=== PATIENT | male | born 1970 | race African-American/Black ===

== ENCOUNTER → 2019-09-27 | Outpatient (CLI) | payer BC ==
[2019-09-27 16:26] LABS: HCT 47.4 % (39.0-53.0); HGB 15.4 gm/dL (13.0-17.5); MCH 29.5 pg (25.0-35.0); MCHC 32.6 g/dL (31.0-37.0); MCV 90.6 fL (80.0-100.0); Mean Platelet Volume 7.9; Platelet Count 215 k/uL (150-450); RBC 5.23 m/uL (4.30-5.90); WBC 6.1 k/uL (3.8-10.6)
[2019-09-27 16:34] LABS: African American GFR (CKD) >90 (>60 ml/min/1.73 sqM); Anion Gap 9 mmol/L; Blood Urea Nitrogen 17 mg/dL (9-20); Carbon Dioxide 25 mmol/L (22-30); Chloride 103 mmol/L (98-107); Non-African American GFR(CKD) >90 (>60 ml/min/1.73 sqM); Potassium 4.3 mmol/L (3.5-5.1); Sodium 137 mmol/L (137-145)
== END | disposition home or self-care (01) ==
LOC: LABPAT 15:34
PROVIDERS: ATTEND Internal Medicine Interventional Cardiology
DX: Z01.818 Encounter for other preprocedural examination (principal); I45.2 Bifascicular block
CPT/HCPCS: 36415; 80051; 82565; 84520; 85027

== ENCOUNTER 2019-10-01 10:03 | Day surgery (SDC) | payer BC ==
[2019-09-29 16:23] VITALS: BMI 35.5
[~2019-10-01 10:03] MED LIST: ALPRAZolam 0.25 MG TAB PO PRN; ALPRAZolam 0.5 MG TAB PO PRN; ASPIRIN 325 MG TAB PO STA; ATORVASTATIN 80 MG TAB PO STA; NITROGLYCERIN SL TABS 0.4 MG TAB SUBLINGUAL PRN; SODIUM CHLORIDE 0.9% 1,000 ML in EMPTY BAG 1 BAG IV ONE
[2019-10-01 10:37] VITALS: RESP 16; TEMP 98.1
[2019-10-01] MEDS ORDERED: MIDAZOLAM 2 MG/2 ML VIAL IVP ONE (12:11)
[2019-10-01] MEDS: LIDOCAINE 1% INJ 10MG/ML (20 ML MDV) SQ ONE ×2 (12:12→12:26)
[2019-10-01] MEDS: VERAPAMIL SYRINGE (5 MG/10 ML) INTRAARTER ONE ×2 (12:14→12:36)
[2019-10-01] MEDS ORDERED: HEPARIN SODIUM 1,000 UN/ML (10ML VL) IVPB ONE (12:16)
[2019-10-01] MEDS ORDERED: IOPAMIDOL-370 125ML BTL INJ ONE (12:39)
[2019-10-01] MEDS ORDERED: RX INFO: IV CONTRAST WAS GIVEN 1 EACH MISC MISCELLANE PRN (12:43)
[2019-10-01] MEDS ORDERED: SODIUM CHLORIDE 0.9% 1,000 ML IV SCH (12:45)
[2019-10-01 14:56] VITALS: PULSE 89
[2019-10-01 14:57] VITALS: BP 132/75
--- NOTE | 2019-10-19 13:37 | CC ---
CARDIAC CATHETERIZATION REPORT DATE OF SERVICE: October 01, 2019 PERFORMING PHYSICIAN: Antony Everett MD. PROCEDURE PERFORMED: Selective right and left coronary angiogram. INDICATION: This is a pleasant 49-year-old gentleman who sees Dr. Baxter as an outpatient with history of cardiomyopathy and status post AICD, who was experiencing symptoms of shortness of breath and underwent myocardial perfusion imaging stress test and that revealed reversible defect. Because of that, a heart catheterization was advised. APPROACH: Right common femoral artery. COMPLICATION: None. LEVEL OF SEDATION: Moderate with sedation length of 15 minutes. PROCEDURE DESCRIPTION: After obtaining an informed consent, the patient was brought to the cardiac computer lab assistant. The right common femoral artery was cannulated using micropuncture technique, the micropuncture wire passed easily then I placed a 6-Pakistani sheath in the right common femoral artery. After that, I did selective right and left coronary angiogram with JR4 and JL4 catheters. The procedure was completed without any complication. SELECTIVE CORONARY ANGIOGRAM: 1. The right coronary artery is a large caliber vessel and is a dominant vessel. The RCA is tortuous. Distally it bifurcates into PDA and PLV branches both appeared to be angiographically normal. 2. The left main is a large caliber vessel. It bifurcates into LCX and LAD. The left main itself is angiographically normal. 3. The left circumflex is a large caliber vessel. It is a nondominant vessel. It is angiographically normal. In the midportion, it gives rise into a large OM branch which appeared to be angiographically normal. 4. The LAD is a large caliber vessel. It is angiographically normal. It gives rise in the midportion into first and second obtuse marginal branches, both appeared to be angiographically normal. CONCLUSION: Normal coronary angiogram. POSTPROCEDURE MANAGEMENT: Medical treatment. MMODL / IJN: [id number] /
== END 2019-10-01 17:25 | disposition home or self-care (01) ==
LOC: CATHCVL 10:03
PROVIDERS: ATTEND Internal Medicine Interventional Cardiology
DX: R94.39 Abnormal result of other cardiovascular function study (principal); I20.0 Unstable angina; I77.1 Stricture of artery; D86.85 Sarcoid myocarditis; I10 Essential (primary) hypertension; I47.1 Supraventricular tachycardia; E78.5 Hyperlipidemia, unspecified; R01.1 Cardiac murmur, unspecified; I45.2 Bifascicular block; I25.2 Old myocardial infarction; E66.9 Obesity, unspecified; Z68.30 Body mass index [BMI] 30.0-30.9, adult; J06.9 Acute upper respiratory infection, unspecified; Z95.810 Presence of automatic (implantable) cardiac defibrillator; Z82.49 Family history of ischemic heart disease and other diseases of the circulatory system; Z79.1 Long term (current) use of non-steroidal anti-inflammatories (NSAID); Z79.899 Other long term (current) drug therapy; Z91.040 Latex allergy status; Z88.2 Allergy status to sulfonamides
CPT/HCPCS: 93458; C1760; C1894 ×2; C1769 ×3; J2250; J2001; J1644; Q9967

== ENCOUNTER → 2020-05-02 | Outpatient (CLI) | payer BC ==
--- NOTE | 2020-05-02 19:57 | CT ---
EXAMINATION TYPE: CT knee LT wo con DATE OF EXAM: 05/02/2020 COMPARISON: 07/04/2016 HISTORY: Left knee pain CT DLP: 528.10 mGycm Automated exposure control for dose reduction was used. FINDINGS: Small joint effusion is present. No acute fractures are evident. There is some prominence of the tibi al plateau patellar insertion may be old Petrona-Schlatter's There is narrowing of the medial lateral joint spaces. Patellofemoral joint space appears preserved. There is some progression of patellofemoral degenerative changes. Medial and lateral joint space narr owing appears preserved over the interval. Three-D reconstructed images performed separately by the technologist are presented and reviewed. IMPRESSION: 1. MODERATE DEGENERATIVE JOINT CHANGES THROUGH THE LEFT KNEE. 2. THERE IS SOME PROGRESSION OF THE PATELLOFEMORAL COMPARTMENT DEGENERATIVE CHANGE FROM COMPARISON. 3. MODERATE JOINT EFFUSION
== END | disposition home or self-care (01) ==
LOC: RADCTMAIN 07:06
PROVIDERS: ATTEND Orthopaedic Surgery
DX: Z48.89 Encounter for other specified surgical aftercare (principal); M17.12 Unilateral primary osteoarthritis, left knee; M25.562 Pain in left knee; D86.9 Sarcoidosis, unspecified; F17.210 Nicotine dependence, cigarettes, uncomplicated

== ENCOUNTER → 2020-05-12 | Day surgery (SDC) | payer BC ==
[2020-05-03 10:47] VITALS: BMI 35.9
[~2020-05-12] MED LIST changes: -ALPRAZolam 0.25 MG TAB PO PRN; -ALPRAZolam 0.5 MG TAB PO PRN; -ASPIRIN 325 MG TAB PO STA; -ATORVASTATIN 80 MG TAB PO STA; +BUPIVACAINE (PF) 0.25% 30 ML VIAL MISCELLANE ONE; +DEXAMETHASONE SOD PHOSPHATE 10 MG/ML 1 ML VIAL IV ONE; +FAMOTIDINE 20 MG/2 ML VIAL IVP ONE; +LACTATED RINGERS 1,000 ML IV SCH; +LIDOCAINE 1% (10MG/ML) FOR IV START INTRADERMA PRN; +LIDOCAINE 1% INJ 10MG/ML (20 ML MDV) ONE; +MIDAZOLAM 2 MG/2 ML VIAL ONE; -NITROGLYCERIN SL TABS 0.4 MG TAB SUBLINGUAL PRN; +ONDANSETRON 4 MG/2 ML VIAL IVP ONE; +PROPOFOL 10 MG/ML 20 ML VIAL IV ONE; +Pre Op ABX Message 1 EACH MISC MISCELLANE ONE; -SODIUM CHLORIDE 0.9% 1,000 ML in EMPTY BAG 1 BAG IV ONE; +SODIUM CHLORIDE 0.9% 100 ML IV ONE; +fentaNYL (PF) 50 MCG/ML 2 ML AMP ONE
[2020-05-12 13:30] LABS: Glucose,Whole Blood 99 mg/dL (75-99)
--- NOTE | 2020-05-12 16:30 | P.OP ---
Date of Procedure: 05/12/20 Procedure(s) Performed: PREOPERATIVE DIAGNOSIS: 1. Left knee lateral and medial meniscus tears 2. Left knee osteoarthritis, tricompartmental POSTOPERATIVE DIAGNOSIS: 1. Left knee lateral meniscus tear 2. Left knee medial meniscus tear 3. Left knee osteoarthritis, patellofemoral, grade 3, medial grade 2, lateral grade 2 PROCEDURES PERFORMED: 1. Left knee arthroscopy, with partial lateral meniscectomy (25)%, posterior horn 2. Arthroscopic partial medial meniscectomy (10) percent, anterior horn 3. Left knee arthroscopic chondroplasty of patellofemoral compartment ANESTHESIA: rn obgyn: None COMPLICATIONS: none ESTIMATED BLOOD LOSS: Less than 10 ml DISPOSITION: To post-anesthesia care unit INDICATIONS: Pascual is a 49-year-old male with a history of left knee pain on the both the medial and lateral sides. He has undergone previous arthroscopy of the left knee successfully a few years ago. He is having mechanical symptoms over the past 6 months. Patient presents to the operating room today for arthroscopy with trimming of the meniscus or repair as necessary as well as chondroplasty or smoothing of the articular surfaces. I have explained the procedure in detail as well as potential risks and complications as being inclusive of but not limited to: Bleeding, infection, scarring, discomfort, blood vessel and/or nerve damage, failure to relieve symptoms, persistence or recurrence and/or worsening of symptoms, blood clot, pulmonary embolism, limp, , and other risks, including the need for knee replacement. The consent form has been signed. PROCEDURE: After appropriate consent was obtained, the patient was taken to the operating room and placed supine on the operating table. General anesthesia was initiated. The knee was examined under anesthesia. Medial collateral, lateral collateral, anterior and posterior cruciate ligaments were all intact. Range of motion was 0-125 with mild crepitus in the patellofemoral compartment. Mild effusion but no soft tissue swelling was noted. Prepping and draping of the operative knee was performed in the usual sterile fashion using ChloraPrep. Care was taken that all pressure points were adequately padded. Leg pierre and pneumotourniquet were used. ``Time-out" was called according to [facility] standards, confirming patient identity, surgical procedure, side, and antibiotic administration. The surgical portals were placed directly next to the patellar tendon medially a nd laterally. Camera and instruments were carefully inserted into the knee and arthroscopy was performed. Patellofemoral joint was first inspected. Mild synovitis was seen, and was resected where it appeared particularly inflamed. Patellofemoral joint was noted to be arthritic, with grade 3 changes present over 70 %. Chondroplasty was performed using a shaver and radiofrequency probe, removing unstable cartilage elements and smoothing the surface to eliminate step-off. Lateral compartment was then examined. Lateral meniscus tear was noted involving the posterior horn and appeared to be a degenerative stellate-type tear after visualization and probing. The meniscus tear was resected using a combination of basket forceps and shaver. Approximately 25 % of the meniscus was resected. The remaining meniscus was noted to be intact and stable. Hyaline cartilage showed grade 2 changes. Medial compartment was then examined. Medial meniscus tear was noted involving the anterior horn and appeared to be a degenerative-type tear after visualization and probing. The meniscus tear was resected using a combination of basket forceps and shaver. Approximately 10 % of the meniscus was resected. The remaining meniscus was noted to be intact and stable. Hyaline cartilage showed grade 2 changes. Cruciate ligaments were noted to be intact. No loose bodies or ganglion cysts were noted around the cruciate ligaments. Medial and lateral gutters showed no evidence of loose bodies, but some mild synovitis was present and was resected with a shaver. Portals were then closed with 4-0 Monocryl suture. A quantity of Marcaine solution was injected into the knee and around the portal sites. Steri-Strips were applied and tourniquet was deflated. Sterile dressing and light compressive dressing was applied using Webril and MELINA wrap. Patient tolerated the procedure well and taken to recovery room in stable condition. Sponge and needle counts were correct.
[2020-05-12 16:48] VITALS: TEMP 98
[2020-05-12 16:51] VITALS: RESP 16
[2020-05-12 18:04] VITALS: BP 143/91; PULSE 60
--- NOTE | 2020-05-16 09:54 | CDI ---
Date: 05.16.2020 CDS/Data Systems Analyst Name: Trini Rubio Phone: If any questions, call Anisa Mims Metal Forger'S Assistant at [phone] Patient Name: Jeovanny Casillas Admit Date 05.12.20 Discharge Date: 05.12.20 ATTENTION: The [facility] Coding Staff appreciate your assistance in clarifying documentation. Please respond to the clarification below the line at the bottom and electronically sign. The [facility] Coding staff will review the response and follow-up if needed. Please note: Queries are made part of the Legal Health Record. If you have any questions, please contact the Metal Forger'S Assistant. Dear Dr. Sweeney In order to code to the greatest specificity and for the greatest reimbursement I need the following information: Pt had a meniscectomy on his Left knee for repair of lateral and medical meniscus tears. Please specify whether these tears where cause of trauma or they were chronic in nature. Thank you for your kind consideration. MTDD
== END | disposition home or self-care (01) ==
LOC: OR 13:05
PROVIDERS: ATTEND Orthopaedic Surgery
DX: M23.252 Derangement of posterior horn of lateral meniscus due to old tear or injury, left knee (principal); M23.212 Derangement of anterior horn of medial meniscus due to old tear or injury, left knee; M17.12 Unilateral primary osteoarthritis, left knee; M65.862 Other synovitis and tenosynovitis, left lower leg; D86.9 Sarcoidosis, unspecified; E66.01 Morbid (severe) obesity due to excess calories; F17.210 Nicotine dependence, cigarettes, uncomplicated; Z91.040 Latex allergy status; Z88.2 Allergy status to sulfonamides; Z98.890 Other specified postprocedural states; Z79.899 Other long term (current) drug therapy; Z79.1 Long term (current) use of non-steroidal anti-inflammatories (NSAID); Z88.5 Allergy status to narcotic agent; Z68.38 Body mass index [BMI] 38.0-38.9, adult; Z95.810 Presence of automatic (implantable) cardiac defibrillator; Z82.49 Family history of ischemic heart disease and other diseases of the circulatory system
CPT/HCPCS: 29880; J2250; J1100; J2405; J2001; J3010; J2704

== ENCOUNTER 2021-07-19 10:21 | Emergency (ER) | payer BC ==
[2021-07-19 10:34] VITALS: TEMP 98
--- NOTE | 2021-07-19 11:25 | ED ---
General Adult HPI - General Chief complaint: Upper Respiratory Infection Stated complaint: Covid + Time Seen by Provider: 07/19/21 10:35 Source: patient Mode of arrival: ambulatory Limitations: no limitations - History of Present Illness Initial comments: 50-year-old male with past medical history of cardiac sarcoidosis, obesity, hypertension presents emergency department for antibody infusion. He his primary care doctor does call her facility requesting antibodies. He tested positive last night and has had symptoms since the . He is vaccinated with a booster. He has a cough, runny nose and body aches. He denies chest pain or shortness of breath. Patient does not demonstrate any increased worked work of breathing. No nausea, vomiting or diarrhea. No other alleviating, precipitating or modifying factors - Related Data Home Medications Medication Instructions Recorded Confirmed Celecoxib [CeleBREX] 200 mg PO DAILY 03/28/15 05/09/20 Acetaminophen [Tylenol Extra 500 mg PO Q4H PRN 09/29/19 05/09/20 Strength] Previous Rx's Medication Instructions Recorded Ondansetron Odt [Zofran Odt] 4 mg PO Q8HR PRN #14 tab 05/12/20 Sennosides-Docusate Sodium 1 tab PO BID #60 tablet 05/12/20 [Senokot-S] traMADol HCL [Ultram] 50 mg PO Q6HR PRN #32 tab 05/12/20 Allergies Allergy/AdvReac Type Severity Reaction Status Date / Time hydrocodone bitartrate Allergy Itching,tejal Verified 07/19/21 10:30 [From Vicodin] h latex Allergy Itching,tejal Verified 07/19/21 10:30 h sulfamethoxazole Allergy Itching,tejal Verified 07/19/21 10:30 [From Bactrim] h trimethoprim [From Bactrim] Allergy Itching,tejal Verified 07/19/21 10:30 h Review of Systems ROS Statement: Those systems with pertinent positive or pertinent negative responses have been documented in the HPI. ROS Other: All systems not noted in ROS Statement are negative. Past Medical History Past Medical History: Chest Pain / Angina, GERD/Reflux, Hypertension Additional Past Medical History / Comment(s): migraines, hiatal hernia, cardiac scarcoidosis History of Any Multi-Drug Resistant Organisms: None Reported Past Surgical History: AICD, Heart Catheterization, Orthopedic Surgery Additional Past Surgical History / Comment(s): rt wrist surgery, left knee surgery Past Anesthesia/Blood Transfusion Reactions: Motion Sickness Type of Cardiac Device: AICD Device Placement Date:: 03/30/15-[employer] Past Psychological History: No Psychological Hx Reported Smoking Status: Never smoker Past Alcohol Use History: Occasional Past Drug Use History: None Reported - Past Family History Mother Family Medical History: No Reported History General Exam Limitations: no limitations General appearance: alert, in no apparent distress Head exam: Present: atraumatic, normocephalic, normal inspection Eye exam: Present: normal appearance, PERRL, EOMI. Absent: scleral icterus, conjunctival injection, periorbital swelling ENT exam: Present: mucous membranes moist, other (nasal congestion) Neck exam: Present: normal inspection. Absent: tenderness, meningismus, lymphadenopathy Respiratory exam: Present: normal lung sounds bilaterally. Absent: respiratory distress, wheezes, rales, rhonchi, stridor Cardiovascular Exam: Present: regular rate, normal rhythm, normal heart sounds. Absent: systolic murmur, diastolic murmur, rubs, gallop, clicks GI/Abdominal exam: Present: soft, normal bowel sounds. Absent: distended, tenderness, guarding, rebound, rigid Extremities exam: Present: normal inspection, full ROM, normal capillary refill. Absent: tenderness, pedal edema, joint swelling, calf tenderness Back exam: Present: normal inspection Neurological exam: Present: alert, oriented X3, CN II-XII intact Psychiatric exam: Present: normal affect, normal mood Skin exam: Present: warm, dry, intact, normal color. Absent: rash Course Vital Signs 07/19/21 07/19/21 10:31 13:38 Temperature 98 F Pulse Rate 89 71 Respiratory 18 20 Rate Blood Pressure 148/91 160/82 O2 Sat by Pulse 97 100 Oximetry Medical Decision Making - Medical Decision Making On arrival patient was placed into room 15. A thorough history and physical exam was performed. IV is established and antibodies are infused. Patient discharged home and instructed to follow up with primary care doctor. Return for any new or worsening symptoms - Lab Data Lab Results 07/19/21 Range/Units 10:30 Coronavirus (PCR) Detected A (Not Detectd) Disposition Clinical Impression: COVID-19, Sarcoid Disposition: HOME SELF-CARE Condition: Stable Instructions (If sedation given, give patient instructions): Coronavirus Disease 2019 (COVID-19) Additional Instructions: You received antibody infusion today. Please follow-up with your doctor. Check your pulse ox frequently and return for any new or worsening symptoms including oxygen saturation of less than 90%. Is patient prescribed a controlled substance at d/c from ED?: No Referrals: Maged Dela Cruz MD [Primary Care Provider] - 1-2 days Time of Disposition: 11:24
[2021-07-19] MEDS ORDERED: SODIUM CHLORIDE 0.9% 50 ML IVPB ONE (11:30)
[2021-07-19] MEDS ORDERED: BAMLANIVIMAB (EUA) 700 MG, ETESEVIMAB (EUA) 1,400 MG in SODIUM CHLORIDE 0.9% 100 ML IVPB ONE (11:30)
[2021-07-19 13:39] VITALS: BP 160/82; PULSE 71; RESP 20
== END 2021-07-19 14:02 | disposition home or self-care (01) ==
LOC: EC 10:21
DX: U07.1 COVID-19 (principal); D86.9 Sarcoidosis, unspecified; I10 Essential (primary) hypertension; G43.909 Migraine, unspecified, not intractable, without status migrainosus; Z72.89 Other problems related to lifestyle
CPT/HCPCS: 87635; 99283; J3490

== ENCOUNTER 2022-01-28 09:42 | Emergency (ER) | payer BC ==
[2022-01-28 09:47] VITALS: BP 126/84; PULSE 57; RESP 16; TEMP 97.3
[2022-01-28] MEDS ORDERED: HYDROmorphone 1 MG/ML 1 ML SYRINGE IVP STA ×2 (10:29→14:00)
[2022-01-28] MEDS ORDERED: ONDANSETRON 4 MG/2 ML VIAL IVP STA (10:29)
--- NOTE | 2022-01-28 11:12 | XR ---
EXAMINATION TYPE: XR lumbosacral spine min 4V DATE OF EXAM: 01/28/2022 CLINICAL HISTORY: Injury with pain TECHNIQUE: Frontal, lateral, and oblique images of the lumbar spine are obtained. COMPARISON: None FINDINGS: I will assume bilateral hypoplastic T12 ribs there are 5 lumbar type vertebral bodies ident ified. The lumbar spine shows satisfactory alignment without evidence of acute fracture or dislocati on. Vertebral body heights heights are within normal limits. Mild disc space narrowing L3-L4 level. The oblique images appear within normal limits. There are 2 nonobstructing left renal calculi measuri ng up to 11 mm in size incidentally noted. Possible some sclerosis along the right sacroiliac joint. Correlate clinically. IMPRESSION: No acute fracture or dislocation is seen in the lumbar spine.
[2022-01-28 11:42] LABS: Appearance,Urine Clear (Clear); Bilirubin,Urine Negative (Negative); Blood,Urine Negative (Negative); Color,Urine Yellow; Glucose,Urine (UA) Negative (Negative); Ketones,Urine Negative (Negative); Leukocyte Esterase,Urine Negative (Negative); Nitrite,Urine Negative (Negative); Protein,Urine Trace (Negative); Specific Gravity,Urine 1.021 (1.001-1.035); Urobilinogen,Urine <2.0 mg/dL (<2.0)
--- NOTE | 2022-01-28 11:50 | ED ---
Back Pain HPI - General Chief Complaint: Back Pain/Injury Stated Complaint: Back pain Time Seen by Provider: 01/28/22 09:47 Source: patient, EMS, RN notes reviewed Mode of arrival: EMS Limitations: no limitations - History of Present Illness Initial Comments: 51-year-old male presents emergency Department chief complaint low back pain. Patient states she's had problems with his back in the past primarily on the right side. Patient does see a chiropractor. Patient states this morning he started having worsening pain of his low back primarily left side. He has no pain areas on his left leg states for his low back hip region. Patient denies any alcohol, bladder incontinence or retentionthat C does. Patient states he took some old [place] with minimal relief of symptoms. He has no dysuria denies a history kidney stones. - Related Data Home Medications Medication Instructions Recorded Confirmed Celecoxib [CeleBREX] 200 mg PO DAILY 03/28/15 05/09/20 Acetaminophen [Tylenol Extra 500 mg PO Q4H PRN 09/29/19 05/09/20 Strength] Previous Rx's Medication Instructions Recorded Ondansetron Odt [Zofran Odt] 4 mg PO Q8HR PRN #14 tab 05/12/20 Sennosides-Docusate Sodium 1 tab PO BID #60 tablet 05/12/20 [Senokot-S] traMADol HCL [Ultram] 50 mg PO Q6HR PRN #32 tab 05/12/20 HYDROcodone/APAP 7.5-325MG [[place] 1 tab PO Q6HR PRN 3 Days #12 tab 01/28/22 7.5-325] Ibuprofen [Motrin] 600 mg PO Q8HR PRN #20 tab 01/28/22 predniSONE 50 mg PO DAILY #5 tab 01/28/22 Allergies Allergy/AdvReac Type Severity Reaction Status Date / Time hydrocodone bitartrate Allergy Itching,tejal Verified 07/19/21 10:30 [From Vicodin] h latex Allergy Itching,tejal Verified 07/19/21 10:30 h sulfamethoxazole Allergy Itching,tejal Verified 07/19/21 10:30 [From Bactrim] h trimethoprim [From Bactrim] Allergy Itching,tejal Verified 07/19/21 10:30 h Review of Systems ROS Statement: Those systems with pertinent positive or pertinent negative responses have been documented in the HPI. ROS Other: All systems not noted in ROS Statement are negative. Past Medical History Past Medical History: Chest Pain / Angina, GERD/Reflux, Hypertension Additional Past Medical History / Comment(s): migraines, hiatal hernia, cardiac scarcoidosis History of Any Multi-Drug Resistant Organisms: None Reported Past Surgical History: AICD, Heart Catheterization, Orthopedic Surgery Additional Past Surgical History / Comment(s): rt wrist surgery, left knee surgery, pacemaker/defib Past Anesthesia/Blood Transfusion Reactions: Motion Sickness Type of Cardiac Device: AICD Device Placement Date:: 03/30/15-[employer] Past Psychological History: No Psychological Hx Reported Smoking Status: Never smoker Past Alcohol Use History: Occasional Past Drug Use History: None Reported - Past Family History Mother Family Medical History: No Reported History General Exam Limitations: no limitations General appearance: alert, in no apparent distress Head exam: Present: atraumatic, normocephalic, normal inspection Eye exam: Present: normal appearance, PERRL, EOMI. Absent: scleral icterus, c onjunctival injection, periorbital swelling ENT exam: Present: normal exam, mucous membranes moist Neck exam: Present: normal inspection. Absent: tenderness, meningismus, lymphadenopathy Respiratory exam: Present: normal lung sounds bilaterally. Absent: respiratory distress, wheezes, rales, rhonchi, stridor Cardiovascular Exam: Present: regular rate, normal rhythm, normal heart sounds. Absent: systolic murmur, diastolic murmur, rubs, gallop, clicks GI/Abdominal exam: Present: soft, normal bowel sounds. Absent: distended, tenderness, guarding, rebound, rigid Extremities exam: Present: other (Lower extremity strength equal bilaterally neurovascular intact equal and equal warmth) Back exam: Present: tenderness, muscle spasm, paraspinal tenderness. Absent: full ROM, vertebral tenderness Neurological exam: Present: alert, oriented X3, reflexes normal. Absent: motor sensory deficit Course Vital Signs 01/28/22 09:43 Temperature 97.3 F L Pulse Rate 57 L Respiratory 16 Rate Blood Pressure 126/84 O2 Sat by Pulse 100 Oximetry Medical Decision Making - Medical Decision Making 51-year-old male present emergency from it for low back pain. Patient is given pain control symptoms are improving. Patient has no red flag symptoms. Patient does have mild degenerative changes lumbar spine patient does have some discomfort SI joint. Patient follow-up with Dr. Mcpherson. Patient discharged in stable condition return parameters discussed. - Lab Data Lab Results 01/28/22 Range/Units 11:36 Urine Color Yellow Urine Appearance Clear (Clear) Urine pH 8.0 (5.0-8.0) Ur Specific Simms 1.021 (1.001-1.035) Urine Protein Trace H (Negative) Urine Glucose (UA) Negative (Negative) Urine Ketones Negative (Negative) Urine Blood Negative (Negative) Urine Nitrite Negative (Negative) Urine Bilirubin Negative (Negative) Urine Urobilinogen <2.0 (<2.0) mg/dL Ur Leukocyte Esterase Negative (Negative) Disposition Clinical Impression: Lumbar back pain Disposition: HOME SELF-CARE Condition: Stable Instructions (If sedation given, give patient instructions): Acute Low Back Pain (ED) Additional Instructions: Please return to the Emergency Department if symptoms worsen or any other concerns. Prescriptions: Ibuprofen [Motrin] 600 mg PO Q8HR PRN #20 tab PRN Reason: Pain HYDROcodone/APAP 7.5-325MG [[place] 7.5-325] 1 tab PO Q6HR PRN 3 Days #12 tab PRN Reason: pain predniSONE 50 mg PO DAILY #5 tab Is patient prescribed a controlled substance at d/c from ED?: No Referrals: Maged Dela Cruz MD [Primary Care Provider] - 1-2 days Helen Ayon DO [Doctor of Osteopathic Medicine] - 1-2 days Time of Disposition: 13:37
[2022-01-28] MEDS ORDERED: KETOROLAC 15 MG/ML 1 ML VIAL IVP STA ×2 (12:07→14:00)
[2022-01-28] MEDS ORDERED: methylPREDNISolone SOD SUCCI 125 MG/2 ML VIAL IV STA (12:07)
== END 2022-01-28 14:20 | disposition home or self-care (01) ==
LOC: EC 09:42
DX: M54.50 Low back pain, unspecified (principal); I10 Essential (primary) hypertension; Z88.5 Allergy status to narcotic agent; Z91.040 Latex allergy status; Z88.2 Allergy status to sulfonamides
CPT/HCPCS: 81003; 72110; 99284; 96374; 96375; 96376; J2930; J3360; J2405; J1170; J1885

== ENCOUNTER → 2022-12-18 | Outpatient (CLI) | payer BC ==
[2022-12-18 14:46] LABS: Basophils # (A) 0.04 X 10*3/uL (0.00-0.10); Basophils % (A) 0.7 %; Eosinophils # (A) 0.15 X 10*3/uL (0.04-0.35); Eosinophils % (A) 2.7 %; HCT 47.9 % (39.6-50.0); HGB 15.2 g/dL (13.0-17.0); Immature Grans, Automated 0.4 %; Lymphocytes # (A) 2.04 X 10*3/uL (0.90-5.00); MCH 28.6 pg (27.0-32.0); MCHC 31.7 g/dL (32.0-37.0); MCV 90.2 fL (80.0-97.0); Mean Platelet Volume 10.6 fL (9.5-12.2); Monocytes # (A) 0.36 X 10*3/uL (0.20-1.00); Monocytes % (A) 6.5 %; NRBC Per 100 WBC 0 /100 WBCS (0.0-0.0); Neutrophils # (A) 2.91 X 10*3/uL (1.80-7.70); Neutrophils % (A) 52.7 %; Platelet Count 229 X 10*3/uL (140-440); RBC 5.31 X 10*6/uL (4.40-5.60); RDW 13.2 % (11.5-14.5); WBC 5.52 X 10*3/uL (4.50-10.00)
[2022-12-18 15:34] LABS: ALT 26 U/L (10-49); AST 22 U/L (14-35); African American GFR (CKD) 100.5 (60.0-200.0); Albumin 4.4 g/dL (3.8-4.9); Albumin/Globulin Ratio 2.02 (1.60-3.17); Alkaline Phosphatase 84 U/L (41-126); Blood Urea Nitrogen 17.1 mg/dL (9.0-27.0); C Reactive Protein <0.30 mg/dL (0.00-0.80); Calcium 9.3 mg/dL (8.7-10.3); Carbon Dioxide 25.6 mmol/L (20.0-27.5); Chloride 103 mmol/L (96-109); Chol/HDL Ratio 3.59 Ratio; Globulin 2.2 g/dL (1.6-3.3); Glucose 101 mg/dL (70-110); LDL Cholesterol,Calculated 102.6 mg/dL (0.0-131.0); Non-African American GFR(CKD) 86.7 (60.0-200.0); Potassium 4.1 mmol/L (3.5-5.5); Sodium 142 mmol/L (135-145); Total Protein 6.5 g/dL (6.2-8.2); Uric Acid 5.1 mg/dL (3.7-8.7)
[2022-12-18 16:39] LABS: Rheumatoid Factor, Qnt <10 IU/mL (0-15)
[2022-12-18 16:46] LABS: Erythrocyte Sedimentation Rate 12 mm/Hr (0-20)
[2022-12-19 12:54] LABS: Angiotensin-1 Converting Enz. 23 U/L (8-52)
[2022-12-19 12:56] LABS: HLA B27 NEGATIVE
[2022-12-20 12:06] LABS: ANA Pattern Speckled
== END | disposition home or self-care (01) ==
LOC: LABWHC1 08:39
PROVIDERS: ATTEND Family Medicine
DX: Z00.00 Encounter for general adult medical examination without abnormal findings (principal); Z13.220 Encounter for screening for lipoid disorders; Z12.5 Encounter for screening for malignant neoplasm of prostate; I51.4 Myocarditis, unspecified; M15.8 Other polyosteoarthritis; R53.83 Other fatigue
CPT/HCPCS: 36415; 80053; 80061; 82164; 84153; 84443; 84550; 85025; 85652; 86038; 86039; 86140; 86431; 86812

== ENCOUNTER → 2023-07-03 | Outpatient (CLI) | payer BC ==
--- NOTE | 2023-07-03 13:04 | XR ---
EXAMINATION TYPE: XR knee complete LT DATE OF EXAM: 07/03/2023 11:31 AM CLINICAL INDICATION:Male, 52 years old with history of G89.19, R29.898, Z447.1; [facility] COMPARISON: CT 05/02/2020 TECHNIQUE: XR knee complete LT; examined in Frontal, lateral and oblique projections. FINDINGS: Status post total knee arthroplasty changes with hardware in appropriate alignment and in tact. No evidence of fracture. IMPRESSION: Status post total knee arthroplasty changes with hardware intact and appropriate alignment. No fractu res identified.
== END | disposition home or self-care (01) ==
LOC: RADXRMAIN 11:06
PROVIDERS: ATTEND Family Medicine
DX: G89.18 Other acute postprocedural pain (principal); R29.898 Other symptoms and signs involving the musculoskeletal system; Z47.1 Aftercare following joint replacement surgery; Z96.652 Presence of left artificial knee joint

== ENCOUNTER → 2024-01-08 | Outpatient (CLI) | payer BC ==
--- NOTE | 2024-01-08 10:49 | CT ---
EXAMINATION TYPE: CT lumbar spine wo con DATE OF EXAM: 01/08/2024 6:52 AM COMPARISON: None HISTORY: Hip and back pain CT DLP: 1215.8 mGycm Automated exposure control for dose reduction was used. Unenhanced CT of the lumbar spine was performed. Bone and soft tissue window settings are submitted as well as coronal and sagittal reconstructions. Findings: The lumbar vertebral segments are normal in height and alignment and there is no fracture or subluxat ion. There is mild disc space narrowing at L3-4 and L4-5 levels with mild spondylolisthesis indicatin g mild degenerative disc disease. There is a questionable disc herniation of the L4-5 disc with an ex truded fragment cranially and on the right. This technique is limited for disc herniation confirmatio n should be made with MRI of the lumbar spine. Secondary to circumferential disc bulge and thickening of ligamentum flavum, there is mild to possibl y moderate spinal stenosis at the L4-5 level. There is mild to moderate degeneration of the SI joints and facet joints at the L3-4, L4-5 and L5-S1 levels. There is mild bony neural foraminal encroachment at the L3-4 level on the left. IMPRESSION: 1. Mild degenerative disc disease at L3-4 and L4-5 levels as described. 2. Questionable disc herniation at the L4-5 level. Confirmation should be made with MRI of the lumbar spine as this technique is limited for disc herniation. 3. Mild to moderate spinal stenosis at the L4-5 is suspected. 4. Multilevel facet degeneration in the lower lumbar spine. 5. Mild bony neural foraminal encroachment at the L3-4 level on the left.
== END | disposition home or self-care (01) ==
LOC: RADCTMAIN 06:35
PROVIDERS: ATTEND Family Medicine
DX: M54.16 Radiculopathy, lumbar region (principal); M51.36 Other intervertebral disc degeneration, lumbar region
CPT/HCPCS: 72131